=== PATIENT | female | born 1990 | race American Indian/Alaskan Native ===

== ENCOUNTER 2020-10-31 17:35 | Inpatient (IN) | payer MEDICAID ==
[2020-10-31] MEDS ORDERED: Ampicillin 2 GM in Sodium Chloride 0.9% 100 ML IV ONE (21:20)
--- NOTE | 2020-10-31 21:25 | PCM.LDHP ---
L&D History of Present Illness - General Date of Service: 10/31/20 Admit Problem/Dx: Patient Status Order with Admit Dx/Problem 10/31/20 17:45 Patient Status [ADT] Routine Admission Diagnosis/Problem Admission Diagnosis/Problem 10/31/20 21:19 Kayli is a 30-year-old 4 para 3-0-0-3 female at 40-3/7 weeks gestational age who has a reported UMA of 10/28/2020 by ultrasound done in July 2020 who is evaluated in labor and delivery for reported contractions and questionable early labor symptoms. Source of Information: Patient History Limitations: Reports: No Limitations - History of Present Illness Introduction:: Kayli is a 30-year-old 4 para 3-0-0-3 female at 40-3/7 weeks gestational age who has a reported UMA of 10/28/2020 by ultrasound done in July 2020 who is evaluated in labor and delivery for reported contractions and questionable early labor symptoms. She reports that her symptoms are that she is having "stomach pain" which she relates to contractions that she is felt with her previous labor/deliveries. She has had very little care [place] Also an ultrasound done in [place], [place] in July 2020 which placed her UMA at 10/28/2020. She has not been back for care since that time. She reports questionable visit x1 in [place], [place]. She also reports that she has had labs done in [place]. There is no evidence of them in calling to the labor and delivery at [facility] in [place], [place]. 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 Patient's had 3 vaginal deliveries all delivered in [place], [place]. Largest baby was 8 pounds 8 ounces. No reported abnormal Pap smears or STIs. Past medical history: 1. x3 Past surgical history: Unremarkable Family history: Mother secondary to kidney disease from diabetes at age 58. Father is alive but health is unknown. 3 sisters1 with diabetes mellitus, 2 that are healthy. 1 brother alive and well. All grandparents are causes unknown. Social history: Patient is single, lives in [facility] with her significant other Gonsalo. She does not use any significance alcohol, drugs or tobacco has a remote history of smoking. Review of systems: In general patient is having some abdominal/pelvic tightenings that she relates to early labor. Denies any leakage of fluid, bloo dy show. She does report good activity. Skin: Negative Lungs: No infectious symptoms or shortness of breath Cardiovascular: No chest pain or exercise intolerance Breasts: No lumps, changes in size, pain, dimpling, discharge or axillary or supraclavicular concerns. GI: Negative : Changes associated with . Musculoskeletal: Negative Neurological: Negative Physical exam: In general the patient is well-developed, well-nourished, pleasant female of stated age in no acute distress. Skin is warm dry without lesions. HEENT, neck and back within normal limits. Lungs are clear with good breath sounds in all lung jon. Cardiovascular exam shows regular and rhythm without murmurs. Abdomen is gravid with fundal height at 39 and half centimeters. Baby in vertex presentation. Vertex presentation was confirmed by abdominal exam and cervical exam. Genital shows cervix to be 4 cm dilated, 90% effaced, -2 station, mid position to anterior, soft, bulging bag of carpio. Extremities and neurological exam are grossly within normal limits. 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: - Infectious Disease History Infectious Disease History: Reports: None Social & Family History - Family History Family Medical History: No Pertinent Family History OBGYN: Reports: Endocrine/Metabolic: Reports: Diabetes, type II - Caffeine Use Caffeine Use: Reports: None H&P Review of Systems - Review of Systems: Review Of Systems: See Below L&D Exam - Exam Exam: See Below - Vital Signs Vital Signs: Last Vital Signs Temp 36.8 C 10/31/20 17:57 Pulse 84 10/31/20 17:57 Resp 16 10/31/20 17:57 BP 124/71 10/31/20 17:57 Pulse Ox 93 L 10/31/20 17:57 Weight: 91.535 kg - Patient Data Lab Results Last 24 hrs: Laboratory Results - last 24 hr 10/31/20 10/31/20 10/31/20 Range/Units 18:00 20:03 20:03 WBC 8.71 (3.98-10.04) K/mm3 RBC 4.46 (3.98-5.22) M/mm3 Hgb 9.1 L (11.2-15.7) gm/dl Hct 31.6 L (34.1-44.9) % MCV 70.9 L (79.4-94.8) fl MCH 20.4 L (25.6-32.2) pg MCHC 28.8 L (32.2-35.5) g/dl RDW Std Deviation 53.6 H (36.4-46.3) fL Plt Count 285 (182-369) K/mm3 MPV 9.7 (9.4-12.3) fl Neut % (Auto) 70.8 (34.0-71.1) % Lymph % (Auto) 18.4 L (19.3-51.7) % [place] % (Auto) 8.3 (4.7-12.5) % Eos % (Auto) 1.5 (0.7-5.8) Baso % (Auto) 0.5 (0.1-1.2) % Neut # (Auto) 6.18 H (1.56-6.13) K/mm3 Lymph # (Auto) 1.60 (1.18-3.74) K/mm3 [place] # (Auto) 0.72 H (0.24-0.36) K/mm3 Eos # (Auto) 0.13 (0.04-0.36) K/mm3 Baso # (Auto) 0.04 (0.01-0.08) K/mm3 Manual Slide Review Abnormal smear Urine Opiates Screen Negative (DNNLVA=686) Ur Buprenorphine Scrn Negative (CUTOFF=10) Ur Oxycodone Screen Negative (OSB2WD=729) Urine Methadone Screen Negative (PQFKZK=547) Ur Propoxyphene Screen Negative (HPQSVN=715) Ur Barbiturates Screen Negative (JCIYLX=019) Ur Tricyclics Screen Negative (NTPWCT=314) Ur Phencyclidine Scrn Negative (CUTOFF=25) Ur Amphetamine Screen Negative (HAFIJE=823) U Methamphetamines Scrn Negative (VVPYGH=634) U Benzodiazepines Scrn Negative (FELSPY=547) U Cocaine Metab Screen Negative (PRFFIA=860) U Marijuana (THC) Screen Negative (CUTOFF=50) HIV-1 Ab Rapid Screen Negative (NEGATIVE) Blood Type 10/31/20 Range/Units 20:03 WBC (3.98-10.04) K/mm3 RBC (3.98-5.22) M/mm3 Hgb (11.2-15.7) gm/dl Hct (34.1-44.9) % MCV (79.4-94.8) fl MCH (25.6-32.2) pg MCHC (32.2-35.5) g/dl RDW Std Deviation (36.4-46.3) fL Plt Count (182-369) K/mm3 MPV (9.4-12.3) fl Neut % (Auto) (34.0-71.1) % Lymph % (Auto) (19.3-51.7) % [place] % (Auto) (4.7-12.5) % Eos % (Auto) (0.7-5.8) Baso % (Auto) (0.1-1.2) % Neut # (Auto) (1.56-6.13) K/mm3 Lymph # (Auto) (1.18-3.74) K/mm3 [place] # (Auto) (0.24-0.36) K/mm3 Eos # (Auto) (0.04-0.36) K/mm3 Baso # (Auto) (0.01-0.08) K/mm3 Manual Slide Review Urine Opiates Screen (CVNSJV=657) Ur Buprenorphine Scrn (CUTOFF=10) Ur Oxycodone Screen (UJT5HI=428) Urine Methadone Screen (QTCKFW=904) Ur Propoxyphene Screen (IBOVWC=578) Ur Barbiturates Screen (QBVXQB=638) Ur Tricyclics Screen (IXWZGI=731) Ur Phencyclidine Scrn (CUTOFF=25) Ur Amphetamine Screen (JJTECD=648) U Methamphetamines Scrn (BIMCLB=591) U Benzodiazepines Scrn (YQTGIJ=426) U Cocaine Metab Screen (SRJHEU=621) U Marijuana (THC) Screen (CUTOFF=50) HIV-1 Ab Rapid Screen (NEGATIVE) Blood Type O POSITIVE Result Diagrams: 10/31/20 20:03 - Problem List (1) 40 weeks gestation of SNOMED Code(s): 37264811 ICD Code: Z3A.40 - 40 WEEKS GESTATION OF Status: Acute Current Visit: Yes (2) History of inadequate care SNOMED Code(s): 272047449 ICD Code: O09.30 - SUPRVSN OF PREG W INSUFFICIENT ANTENAT CARE, UNSP TRIMESTER Status: Acute Current Visit: Yes Problem List Initiated/Reviewed/Updated: Yes Orders Last 24hrs: Active Orders 24 hr Category Date Time Status Patient Status [ADT] Routine ADT 10/31/20 17:45 Active Non Stress Test [RC] PER UNIT ROUTINE Care 10/31/20 17:45 Active Vital Signs [RC] PER UNIT ROUTINE Care 10/31/20 17:45 Active GC/CHLAMYDIA BY PCR [MOLEC] Routine Lab 10/31/20 18:00 Received GROUP B STREP BY PCR [MOLEC] Routine Lab 10/31/20 19:59 Received HEP C VIRUS AB [REF] Stat Lab 10/31/20 20:03 Received HEPATITIS B SURFACE AG [CHEM] Stat Lab 10/31/20 20:03 Received PATIENT RETYPE [BBK] Routine Lab 10/31/20 20:52 Ordered RAPID PLASMA REAGIN,RPR [CHEM] Stat Lab 10/31/20 20:03 Received RUBELLA ANTIBODY IGG [CHEM] Stat Lab 10/31/20 20:03 Received TYPE AND SCREEN [BBK] Urgent Lab 10/31/20 20:03 Results Ampicillin 2 gm Med 10/31/20 21:17 Ordered Sodium Chloride 0.9% [Normal Saline] 100 ml IV ONETIME Lactated Ringers [Ringers, Lactated] 1,000 ml Med 10/31/20 21:30 Active IV ASDIRECTED OB Panel [OM.PC] Stat Oth 10/31/20 19:52 Ordered Resuscitation Status Routine Resus Stat 10/31/20 17:45 Ordered Medication Orders Lactated Ringer's (Ringers, Lactated) 1,000 mls @ 125 mls/hr IV ASDIRECTED NOEMI Assessment/Plan Comment:: 1Anais Milan is a 30-year-old 4 para 3-0-0-3 female at 40- 3/7 weeks gestational age who has a reported UMA of 10/28/2020 by ultrasound done in July 2020 who is evaluated in labor and delivery for reported contractions and questionable early labor symptoms. 2. History of rapid labors 3. Desiring epidural in labor 4. history otherwise completely unknownno records available. No labs, reported to have been previously done, are available. 5. Patient plans to bottlefeed. 6. UMA set by ultrasound reported to have been done in July 2020. Plan: 1. Complete laboratory testing drawn 2. Anticipate 3. Support bottlefeeding plan. 4. Epidural per patient desire 5. Will await labor natural progression before intervening with augmentation of labor with AROM 6. Group B strep prophylaxis with ampicillin per protocol 7. Covid testing, RPR upon admission per protocol 8. Anticipate .
[2020-10-31] MEDS: Lactated Ringers 1,000 ML IV SCH (21:35)
[2020-10-31 21:48] LABS: C. TRACHOMATIS BY PCR NOT DETECTED; N. GONORRHOEAE BY PCR NOT DETECTED
[2020-10-31] MEDS ORDERED: Sodium Chloride 0.9% 10 ML Syringe FLUSH PRN (22:45)
[2020-10-31] MEDS ORDERED: Lactated Ringers 1,000 ML IV SCH (22:45)
[2020-10-31] MEDS ORDERED: Nalbuphine 10 MG/1 ML Vial IVPUSH PRN (22:45)
[2020-10-31] MEDS ORDERED: Ondansetron 4 MG/2 ML SDV IVPUSH PRN (22:45)
[2020-10-31] MEDS ORDERED: Oxytocin/Lactated Ringers 10 UNIT/1,000 ML BAG IV SCH (22:45)
[2020-11-01] MEDS ORDERED: Bupivacaine 0.25% 10 ML SDV ONE
[2020-11-01] MEDS ORDERED: Albuterol 0.083% 2.5 MG/3 ML Neb Soln NEB PRN (01:17)
[2020-11-01] MEDS ORDERED: diphenhydrAMINE 50 MG/ML SDV IVPUSH PRN (01:17)
[2020-11-01] MEDS ORDERED: Ondansetron 4 MG/2 ML SDV IVPUSH PRN (01:17)
[2020-11-01] MEDS ORDERED: ePHEDrine 50 MG/ML SDV IVPUSH PRN (01:17)
[2020-11-01] MEDS ORDERED: fentaNYL 100 MCG/2 ML SDV EPIDUR PRN (01:17)
[2020-11-01] MEDS: Ampicillin 1 GM in Sodium Chloride 0.9% 100 ML IV SCH ×2 (01:18→05:34)
--- NOTE | 2020-11-01 01:22 | PCM.PREANE ---
Preanesthetic Assessment - Procedure Proposed Procedure: Epidural - Anesthesia/Transfusion/Family Hx Anesthesia History: Prior Anesthesia Without Reaction Family History of Anesthesia Reaction: No Transfusion History: No Prior Transfusion(s) Intubation History: Unknown - Review of Systems General: No Symptoms Pulmonary: No Symptoms (COVID + with room air sat's=93%), Shortness of Breath (one event) Cardiovascular: No Symptoms Gastrointestinal: No Symptoms (gerd) Neurological: No Symptoms Other: Reports: None - Physical Assessment NPO Status Date: 10/31/20 NPO Status Time: 20:00 Vital Signs: Last Vital Signs Temp 36.8 C 10/31/20 17:57 Pulse 84 10/31/20 17:57 Resp 16 10/31/20 17:57 BP 124/71 10/31/20 17:57 Pulse Ox 93 L 10/31/20 17:57 Height: 1.73 m Weight: 91.535 kg ASA Class: 2 Mental Status: Alert & Oriented x3 Airway Class: Mallampati = 2 Dentition: Reports: Normal Dentition, Caries Thyro-Mental Finger Breadths: 3 Mouth Opening Finger Breadths: 3 ROM/Head Extension: Full Lungs: Clear to Auscultation, Normal Respiratory Effort Cardiovascular: Regular Rate, Regular Rhythm, No Murmurs - Lab Values: Laboratory Last Values WBC 8.71 K/mm3 (3.98-10.04) 10/31/20 20:03 RBC 4.46 M/mm3 (3.98-5.22) 10/31/20 20:03 Hgb 9.1 gm/dl (11.2-15.7) L 10/31/20 20:03 Hct 31.6 % (34.1-44.9) L 10/31/20 20:03 MCV 70.9 fl (79.4-94.8) L 10/31/20 20:03 MCH 20.4 pg (25.6-32.2) L 10/31/20 20:03 MCHC 28.8 g/dl (32.2-35.5) L 10/31/20 20:03 RDW Std Deviation 53.6 fL (36.4-46.3) H 10/31/20 20:03 Plt Count 285 K/mm3 (182-369) 10/31/20 20:03 MPV 9.7 fl (9.4-12.3) 10/31/20 20:03 Neut % (Auto) 70.8 % (34.0-71.1) 10/31/20 20:03 Lymph % (Auto) 18.4 % (19.3-51.7) L 10/31/20 20:03 [place] % (Auto) 8.3 % (4.7-12.5) 10/31/20 20:03 Eos % (Auto) 1.5 (0.7-5.8) 10/31/20 20:03 Baso % (Auto) 0.5 % (0.1-1.2) 10/31/20 20:03 Neut # (Auto) 6.18 K/mm3 (1.56-6.13) H 10/31/20 20:03 Lymph # (Auto) 1.60 K/mm3 (1.18-3.74) 10/31/20 20:03 [place] # (Auto) 0.72 K/mm3 (0.24-0.36) H 10/31/20 20:03 Eos # (Auto) 0.13 K/mm3 (0.04-0.36) 10/31/20 20:03 Baso # (Auto) 0.04 K/mm3 (0.01-0.08) 10/31/20 20:03 Manual Slide Review Abnormal smear 10/31/20 20:03 Urine Opiates Screen Negative (UILYEW=829) 10/31/20 18:00 Ur Buprenorphine Scrn Negative (CUTOFF=10) 10/31/20 18:00 Ur Oxycodone Screen Negative (VVF7CL=702) 10/31/20 18:00 Urine Methadone Screen Negative (ACDSNJ=288) 10/31/20 18:00 Ur Propoxyphene Screen Negative (YTICDT=027) 10/31/20 18:00 Ur Barbiturates Screen Negative (QIGKOT=859) 10/31/20 18:00 Ur Tricyclics Screen Negative (TRADAP=865) 10/31/20 18:00 Ur Phencyclidine Scrn Negative (CUTOFF=25) 10/31/20 18:00 Ur Amphetamine Screen Negative (MJHRDL=270) 10/31/20 18:00 U Methamphetamines Scrn Negative (ZPPXRZ=544) 10/31/20 18:00 U Benzodiazepines Scrn Negative (CUIFAJ=295) 10/31/20 18:00 U Cocaine Metab Screen Negative (GBGCNY=656) 10/31/20 18:00 U Marijuana (THC) Screen Negative (CUTOFF=50) 10/31/20 18:00 HIV-1 Ab Rapid Screen Negative (NEGATIVE) 10/31/20 20:03 SARS-CoV-2 RNA (RIC) Positive (NEGATIVE) H 10/31/20 21:55 C trachomatis DNA (PCR) Not detected 10/31/20 18:00 N gonorrhoeae DNA (PCR) Not detected 10/31/20 18:00 Blood Type O POSITIVE 10/31/20 20:03 Gel Antibody Screen Negative 10/31/20 20:03 Above labs reviewed and noted and within acceptable ranges to proceed with epidural. - Allergies Allergies/Adverse Reactions: Allergies Allergy/AdvReac Type Severity Reaction Status Date / Time No Known Allergies Allergy Verified 10/31/20 19:19 - Anesthesia Plan Pre-Op Medication Ordered: None - Acknowledgements Anesthesia Type Planned: Epidural Pt an Appropriate Candidate for the Planned Anesthesia: Yes Alternatives and Risks of Anesthesia Discussed w Pt/Guardian: Yes Pt/Guardian Understands and Agrees with Anesthesia Plan: Yes PreAnesthesia Questionnaire - Past Health History Medical/Surgical History: Denies Medical/Surgical History HOME HEALTH TRAVEL PT History: Reports: - Infectious Disease History Infectious Disease History: Reports: None - SUBSTANCE USE Tobacco Use Status *Q: Former Tobacco User Tobacco Use Within Last Twelve Months: No Second Hand Smoke Exposure: No Recreational Drug Use History: No - HOME MEDS Home Medications: Home Meds Pnv No.95/Ferrous Fum/Folic AC [ Tablet] 1 each PO DAILY 10/31/20 [History] - CURRENT (IN HOUSE) MEDS Current Meds: Current Medications Albuterol (Albuterol 0.083% 2.5 Mg/3 Ml Neb Soln) 2.5 mg NEB ONETIME PRN PRN Reason: COVID + /Improve oxygenation Diphenhydramine HCl (Diphenhydramine 50 Mg/Ml Sdv) 25 mg IVPUSH Q6H PRN PRN Reason: pruritis Ephedrine Sulfate (Ephedrine 50 Mg/Ml Sdv) 5 mg IVPUSH ASDIRECTED PRN PRN Reason: Hypotension Fentanyl (Fentanyl 100 Mcg/2 Ml Sdv) 100 mcg EPIDUR Q3H PRN PRN Reason: Pain Fentanyl/Bupivacaine HCl (Bupivacaine/Fentanyl/Ns 100 Ml Bag) 100 ml EPIDUR ASDIRECTED [facility] Lactated Ringer's (Ringers, Lactated) 1,000 mls @ 125 mls/hr IV ASDIRECTED [facility] Last Admin: 10/31/20 21:35 Dose: 125 mls/hr Documented by: Ampicillin Sodium 1 gm/ Sodium (Chloride) 100 mls @ 200 mls/hr IV Q4H [facility] Last Admin: 11/01/20 01:18 Dose: 200 mls/hr Documented by: Lactated Ringer's (Ringers, Lactated) 1,000 mls @ 100 mls/hr IV ASDIRECTED [facility] Last Admin: 11/01/20 01:17 Dose: 100 mls/hr Documented by: Oxytocin/Lactated Ringer's (Pitocin In Lr 10 Units/1,000 Ml) 10 unit in 1,000 mls @ 500 mls/hr IV .CONTINUOUS [facility] Miscellaneous Medication (Phenylephrine Hcl In 0.9% Nacl 1 Mg/10 Ml Syringe) 0.1 mg IVPUSH Q10M PRN PRN Reason: Hypotension Nalbuphine HCl (Nalbuphine 10 Mg/1 Ml Vial) 10 mg IVPUSH Q2H PRN PRN Reason: Pain Ondansetron HCl (Ondansetron 4 Mg/2 Ml Sdv) 4 mg IVPUSH Q4H PRN PRN Reason: Nausea/Vomiting Ondansetron HCl (Ondansetron 4 Mg/2 Ml Sdv) 4 mg IVPUSH ONETIME PRN PRN Reason: Nausea/Vomiting Sodium Chloride (Sodium Chloride 0.9% 10 Ml Syringe) 10 ml FLUSH ASDIRECTED PRN PRN Reason: Keep Vein Open Discontinued Medications Ampicillin Sodium 2 gm/ Sodium (Chloride) 100 mls @ 200 mls/hr IV ONETIME ONE Stop: 10/31/20 21:49 Last Admin: 10/31/20 21:35 Dose: 200 mls/hr Documented by:
[2020-11-01] MEDS ORDERED: Bupivacaine/fentaNYL/NS 100 ML Bag EPIDUR SCH (01:30)
[2020-11-01] MEDS: Lactated Ringers 1,000 ML IV SCH ×2 (02:12→07:31)
[2020-11-01] MEDS ORDERED: Oxytocin/Lactated Ringers 10 UNIT/1,000 ML BAG IV SCH ×2 (03:30→11:12)
--- NOTE | 2020-11-01 11:07 | PCM.DEL ---
L & D Note - General Info Date of Service: 11/01/20 Mother's Due Date: 10/28/20 - Delivery Note Labor: Spontaneous, Augmented by ARM Delivery Outcome: Livebirth Delivery Method: Spontaneous Vaginal Delivery-Single Delivery Mode: Vacuum Extraction Presentation: Right Occiput Anterior (ODALIS) Nuchal Cord: None Prep: Povidone-Iodine (Betadine Anesthesia Type: Epidural Amniotic Fluid Description: Clear Episiotomy Type: None Laceration: 2nd Degree (midline and left perineal lacerations) Suture type: Vicryl Suture size: 3-0 Placenta: Intact, Spontaneous Cord: 3 Vessels Estimated Blood Loss: 600 Resuscitation Needed: Yes : Suctioned, Bulb Syringe, Stimulated, Warmed, [place] Used, Warmer Used Provider: Luiz Medrano Score 1 min: 8 Score 5 min: 9 Second Stage Interventions: Reports: Pushing Effectively, Pushing, Stirrups/Leg Supports Delivery Comments (Free Text/Narrative):: Stage I: Kayli Troy was admitted for active labor. On admission her cervix was dilated to 4 cm. She was GBS unknown and was started on ampicillin for GBS prophylaxis and received 3 doses of antibiotics prior to delivery. A GBS swab was collected prior to starting on antibiotics. She was given an epidural for anesthesia. She had artificial rupture membranes with return of clear fluid. She had an intrauterine pressure catheter placed for evaluation of contraction strength. She progressed to complete over the course of approximately 2.5 hours after artificial rupture of membranes. She began pushing. Stage II: Patient had been pushing for approximately 1 hour and started to have heart rate decelerations after her contractions with drops in the heart rate down into the 40s. This was sustained for approximately 1 minute and decision was made to proceed with vacuum extractor delivery for the due to intolerance of labor. The [place]wi luna type vacuum extractor was placed over the head and care was taken to ensure that there was no vaginal tissue between the cup and the head. With the start of the next contraction suction was applied to approximately 575 mmHg. Gentle downward traction was applied with the pushes. With this contraction there was 1 pop off. The vacuum extractor was then reapplied and over the course of 2 ad ditional pushes the was able to be delivered in ODALIS position. The total time of application was approximately 90 seconds with release of the vacuum between contractions. On 11/01/2020 she had a vacuum extractor assisted vaginal delivery of a live male infant at 09:51. Apgars of 8 & 9. Weight of 3740 g (8 lbs 3.9 oz). Length of 21.0 inches. There was no nuchal cord. was delivered in ODALIS position with asynclitic presentation noted after delivery of the . The cord was doubly clamped and cut by father the infant. was placed on mother's abdomen initially and then taken to the warmer for further resuscitation.. Stage III: She had a spontaneous delivery of an intact placenta in Matthew presentation. Three vessel cord. She was given pitocin and fundal massage. She had a second-degree midline and left perineal laceration that was repaired with 3-0 Vicryl. The left perineal laceration was repaired first and then the midline perineal laceration was repaired second. After repair of the midline perineal laceration there was a small amount of bleeding noted just past the vaginal introitus and a [id number] suture was placed with 3-0 Vicryl. Bleeding was controlled at this time. Mom and baby were stable to recovery. EBL of 600 mL. Bear Nye MD 11:08 AM 11/01/2020 Vacuum Extractor Progress Note - Alternative Labor Strategies Considered Alternative Labor Strategies Considered:: Reports: Yes Strategies Considered:: Reports: Contraction Intensity Adequate Indications Considered:: Reports: Yes Indications:: Reports: Suspicion of Immediate or Potential Compromise Time Out:: Reports: Yes - Patient Prepared Patient Prepared:: Reports: Yes Informed Consent:: Reports: Verbal Risks: Reports: Yes Risks Include:: Reports: Laceration, Shoulder Dystocia, Maternal Injury Anesthesia/Analgesia Adequate:: Reports: Yes - Probability of Success High Probability of Success:: Reports: Yes Weight Estimated:: Reports: AGA Patient Diabetic:: Reports: No Pelvis Adequate:: Reports: Yes Position:: ODALIS Asynclitic:: Reports: Yes Station:: +1 - Application Time Maximum Application Time & Number of Pop-Offs Predetermined:: Reports: Yes Maximum Pressure Maintained in [place] (cm Hg):: 57 Total Application Time (min): *max=20min: 3 Number of Times Cup Disengaged:: 1 Type of Vacuum Used:: Reports: Cup: Luna type Vacuum Extraction: Successful - Exit Strategy Exit strategy available:: Reports: Yes and resuscitation teams readily available:: Reports: Yes - General Info Date of Service: 11/01/20 - Patient Data Vitals - Most Recent: Last Vital Signs Temp 36.8 C 10/31/20 17:57 Pulse 84 10/31/20 17:57 Resp 16 10/31/20 17:57 BP 124/71 10/31/20 17:57 Pulse Ox 93 L 10/31/20 17:57 Weight - Most Recent: 91.535 kg I&O - Last 24 Hours: Intake & Output 10/31/20 11/01/20 11/01/20 22:59 06:59 14:59 Output Total Balance @ Lab Results Last 24 Hours: Laboratory Results - last 24 hr 10/31/20 10/31/20 10/31/20 Range/Units 18:00 18:00 20:03 WBC 8.71 (3.98-10.04) K/mm3 RBC 4.46 (3.98-5.22) M/mm3 Hgb 9.1 L (11.2-15.7) gm/dl Hct 31.6 L (34.1-44.9) % MCV 70.9 L (79.4-94.8) fl MCH 20.4 L (25.6-32.2) pg MCHC 28.8 L (32.2-35.5) g/dl RDW Std Deviation 53.6 H (36.4-46.3) fL Plt Count 285 (182-369) K/mm3 MPV 9.7 (9.4-12.3) fl Neut % (Auto) 70.8 (34.0-71.1) % Lymph % (Auto) 18.4 L (19.3-51.7) % [place] % (Auto) 8.3 (4.7-12.5) % Eos % (Auto) 1.5 (0.7-5.8) Baso % (Auto) 0.5 (0.1-1.2) % Neut # (Auto) 6.18 H (1.56-6.13) K/mm3 Lymph # (Auto) 1.60 (1.18-3.74) K/mm3 [place] # (Auto) 0.72 H (0.24-0.36) K/mm3 Eos # (Auto) 0.13 (0.04-0.36) K/mm3 Baso # (Auto) 0.04 (0.01-0.08) K/mm3 Manual Slide Review Abnormal smear Urine Opiates Screen Negative (OARTLP=074) Ur Buprenorphine Scrn Negative (CUTOFF=10) Ur Oxycodone Screen Negative (WWY4MJ=706) Urine Methadone Screen Negative (AZJWAX=527) Ur Propoxyphene Screen Negative (HLYVBD=928) Ur Barbiturates Screen Negative (YHDSFH=006) Ur Tricyclics Screen Negative (MUXJRF=781) Ur Phencyclidine Scrn Negative (CUTOFF=25) Ur Amphetamine Screen Negative (VSPXMS=587) U Methamphetamines Scrn Negative (LWYLQT=186) U Benzodiazepines Scrn Negative (OQUKAO=668) U Cocaine Metab Screen Negative (FRPTTD=466) U Marijuana (THC) Screen Negative (CUTOFF=50) HIV-1 Ab Rapid Screen (NEGATIVE) SARS-CoV-2 RNA (RIC) (NEGATIVE) C trachomatis DNA (PCR) Not detected N gonorrhoeae DNA (PCR) Not detected Blood Type Gel Antibody Screen 10/31/20 10/31/20 10/31/20 Range/Units 20:03 20:03 21:55 WBC (3.98-10.04) K/mm3 RBC (3.98-5.22) M/mm3 Hgb (11.2-15.7) gm/dl Hct (34.1-44.9) % MCV (79.4-94.8) fl MCH (25.6-32.2) pg MCHC (32.2-35.5) g/dl RDW Std Deviation (36.4-46.3) fL Plt Count (182-369) K/mm3 MPV (9.4-12.3) fl Neut % (Auto) (34.0-71.1) % Lymph % (Auto) (19.3-51.7) % [place] % (Auto) (4.7-12.5) % Eos % (Auto) (0.7-5.8) Baso % (Auto) (0.1-1.2) % Neut # (Auto) (1.56-6.13) K/mm3 Lymph # (Auto) (1.18-3.74) K/mm3 [place] # (Auto) (0.24-0.36) K/mm3 Eos # (Auto) (0.04-0.36) K/mm3 Baso # (Auto) (0.01-0.08) K/mm3 Manual Slide Review Urine Opiates Screen (WLPSHK=877) Ur Buprenorphine Scrn (CUTOFF=10) Ur Oxycodone Screen (VZS7SA=509) Urine Methadone Screen (QZMQZV=939) Ur Propoxyphene Screen (YDGUSM=279) Ur Barbiturates Screen (PQRTAQ=340) Ur Tricyclics Screen (NEGMDX=815) Ur Phencyclidine Scrn (CUTOFF=25) Ur Amphetamine Screen (BSWDXS=977) U Methamphetamines Scrn (RTCPYC=881) U Benzodiazepines Scrn (BXQRVH=585) U Cocaine Metab Screen (PPXXKT=505) U Marijuana (THC) Screen (CUTOFF=50) HIV-1 Ab Rapid Screen Negative (NEGATIVE) SARS-CoV-2 RNA (RIC) Positive H (NEGATIVE) C trachomatis DNA (PCR) N gonorrhoeae DNA (PCR) Blood Type O POSITIVE Gel Antibody Screen Negative Med Orders - Current: Current Medications Albuterol (Albuterol 0.083% 2.5 Mg/3 Ml Neb Soln) 2.5 mg NEB ONETIME PRN PRN Reason: COVID + /Improve oxygenation Diphenhydramine HCl (Diphenhydramine 50 Mg/Ml Sdv) 25 mg IVPUSH Q6H PRN PRN Reason: pruritis Ephedrine Sulfate (Ephedrine 50 Mg/Ml Sdv) 5 mg IVPUSH ASDIRECTED PRN PRN Reason: Hypotension Fentanyl (Fentanyl 100 Mcg/2 Ml Sdv) 100 mcg EPIDUR Q3H PRN PRN Reason: Pain Last Admin: 11/01/20 01:37 Dose: 100 mcg Documented by: Fentanyl/Bupivacaine HCl (Bupivacaine/Fentanyl/Ns 100 Ml Bag) 100 ml EPIDUR ASDIRECTED [facility] Last Admin: 11/01/20 01:37 Dose: 100 ml Documented by: Lactated Ringer's (Ringers, Lactated) 1,000 mls @ 125 mls/hr IV ASDIRECTED [facility] Last Admin: 11/01/20 07:31 Dose: 125 mls/hr Documented by: Ampicillin Sodium 1 gm/ Sodium (Chloride) 100 mls @ 200 mls/hr IV Q4H [facility] Last Admin: 11/01/20 05:34 Dose: 200 mls/hr Documented by: Lactated Ringer's (Ringers, Lactated) 1,000 mls @ 100 mls/hr IV ASDIRECTED [facility] Last Admin: 11/01/20 01:17 Dose: 100 mls/hr Documented by: Oxytocin/Lactated Ringer's (Pitocin In Lr 10 Units/1,000 Ml) 10 unit in 1,000 mls @ 500 mls/hr IV .CONTINUOUS NOEMI Oxytocin/Lactated Ringer's (Pitocin In Lr 10 Units/1,000 Ml) 10 unit in 1,000 mls @ 12 mls/hr IV TITRATE NOEMI; Protocol Last Titration: 11/01/20 08:51 Dose: 8 munits/min, 48 mls/hr Documented by: Miscellaneous Medication (Phenylephrine Hcl In 0.9% Nacl 1 Mg/10 Ml Syringe) 0.1 mg IVPUSH Q10M PRN PRN Reason: Hypotension Nalbuphine HCl (Nalbuphine 10 Mg/1 Ml Vial) 10 mg IVPUSH Q2H PRN PRN Reason: Pain Ondansetron HCl (Ondansetron 4 Mg/2 Ml Sdv) 4 mg IVPUSH Q4H PRN PRN Reason: Nausea/Vomiting Ondansetron HCl (Ondansetron 4 Mg/2 Ml Sdv) 4 mg IVPUSH ONETIME PRN PRN Reason: Nausea/Vomiting Sodium Chloride (Sodium Chloride 0.9% 10 Ml Syringe) 10 ml FLUSH ASDIRECTED PRN PRN Reason: Keep Vein Open Discontinued Medications Ampicillin Sodium 2 gm/ Sodium (Chloride) 100 mls @ 200 mls/hr IV ONETIME ONE Stop: 10/31/20 21:49 Last Admin: 10/31/20 21:35 Dose: 200 mls/hr Documented by: - Exam Urinary Catheter Total Time: 0Days 0Hours - Problem List & Annotations (1) Vaginal delivery SNOMED Code(s): 730271988 Code(s): O80 - ENCOUNTER FOR FULL-TERM UNCOMPLICATED DELIVERY Status: Acute Current Visit: Yes (2) Vacuum extractor delivery, delivered SNOMED Code(s): 531575827 Code(s): O66.5 - ATTEMPTED APPLICATION OF VACUUM EXTRACTOR AND FORCEPS Status: Acute Current Visit: Yes (3) Second degree perineal laceration during delivery SNOMED Code(s): 4972553 Code(s): O70.1 - SECOND DEGREE PERINEAL LACERATION DURING DELIVERY Status: Acute Current Visit: Yes (4) 40 weeks gestation of SNOMED Code(s): 23015201 Code(s): Z3A.40 - 40 WEEKS GESTATION OF Status: Acute Current Visit: Yes (5) History of inadequate care SNOMED Code(s): 196567725 Code(s): O09.30 - SUPRVSN OF PREG W INSUFFICIENT ANTENAT CARE, UNSP TRIMESTER Status: Acute Current Visit: Yes - Problem List Review Problem List Initiated/Reviewed/Updated: Yes - My Orders Last 24 Hours: My Active Orders 11/01/20 10:27 Patient Status Manage Transfer [TRANSFER] Routine - Plan Plan:: Kayli Troy is a 30-year-old G4 now P4-0-0-4 female status post vacuum extractor delivery, PPD #0, vacuum extractor delivery for intolerance of labor, asymptomatic Covid positive status, GBS status unknown and received and history of insufficient care Admit to inpatient following vacuum extractor assisted vaginal delivery Continue Pitocin per unit protocol following delivery of placenta and lactated Ringer's until tolerating regular diet Regular diet Vitals per unit routine Ibuprofen and Tylenol for pain control Assist with bottlefeeding as needed Continue to monitor [facility] facility services consult for limited care status during the Anticipate discharge home on day #1 or #2 depending on status Bear Nye MD 11:08 AM 11/01/2020
[2020-11-01] MEDS ORDERED: Witch Hazel Medicated Pads 40/Jar TOP PRN (11:12)
[2020-11-01] MEDS ORDERED: Magnesium Hydroxide 400 MG/5 ML Susp 30 ML Cup PO PRN (11:12)
[2020-11-01] MEDS ORDERED: Benzocaine/Menthol 20%-0.5% Spray 56 GM Canister TOP PRN (11:12)
[2020-11-01] MEDS ORDERED: Docusate Sodium 100 MG Cap PO PRN (11:12)
[2020-11-01] MEDS ORDERED: Hydrocortisone Acetate 25 MG Supp RECTAL PRN (11:12)
[2020-11-01] MEDS: Ibuprofen 600 MG Tab PO PRN ×2 (11:39→20:26)
[2020-11-01] MEDS: Acetaminophen 325 MG Tab PO PRN (15:45)
[2020-11-02] MEDS: Acetaminophen 325 MG Tab PO PRN (04:28)
--- NOTE | 2020-11-02 07:07 | PCM48HPAN ---
Post Anesthesia Note - EVALUATION WITHIN 48HRS OF ANESTHETIC Vital Signs in Normal Range: Yes Patient Participated in Evaluation: Yes Respiratory Function Stable: Yes Airway Patent: Yes Cardiovascular Function Stable: Yes Hydration Status Stable: Yes Pain Control Satisfactory: Yes Nausea and Vomiting Control Satisfactory: Yes Mental Status Recovered: Yes Vital Signs: Last Vital Signs Temp 36.9 C 11/02/20 04:23 Pulse 80 11/02/20 04:23 Resp 15 11/02/20 04:23 BP 105/67 11/02/20 04:23 Pulse Ox 94 L 11/02/20 04:23
[2020-11-02] MEDS: Ibuprofen 600 MG Tab PO PRN (08:19)
--- NOTE | 2020-11-02 08:59 | PCM.SN.2 ---
- Free Text/Narrative Note: Post Progress Note PPD #1 Subjective: Doing well overall. Ambulating without difficulty. Reports that she does have some soreness in her pelvis with ambulation but that it is overall tolerable. Lochia minimal and decreasing since yesterday. Voiding without difficulty. Tolerating regular diet without nausea or vomiting. Pain controlled with oral medications. Bottlefeeding with minimal difficulty. Denies producing any breastmilk at this time. Objective: Vitals: Vital Signs - 24 hr 11/01/20 11/01/20 11/01/20 15:31 15:48 19:59 Temperature 36.8 C 36.9 C Pulse, 94 89 Peripheral Respiratory 16 18 Rate Blood Pressure 115/61 127/76 O2 Sat by Pulse 94 L 94 L Oximetry 11/02/20 04:23 Temperature 36.9 C Pulse, 80 Peripheral Respiratory 15 Rate Blood Pressure 105/67 O2 Sat by Pulse 94 L Oximetry Physical Exam General: Alert and oriented, no acute distress Lungs: Clear to auscultation bilaterally Heart: Regular rate and rhythm Abdomen: Soft, minimal appropriate tenderness, non-distended, fundus midline, nontender, and at the umbilicus Extremities: No edema in bilateral lower extremities, no calf tenderness bilaterally Laboratory Tests 10/31/20 10/31/20 10/31/20 Range/Units 18:00 18:00 19:59 WBC (3.98-10.04) K/mm3 RBC (3.98-5.22) M/mm3 Hgb (11.2-15.7) gm/dl Hct (34.1-44.9) % MCV (79.4-94.8) fl MCH (25.6-32.2) pg MCHC (32.2-35.5) g/dl RDW Std Deviation (36.4-46.3) fL Plt Count (182-369) K/mm3 MPV (9.4-12.3) fl Neut % (Auto) (34.0-71.1) % Lymph % (Auto) (19.3-51.7) % [place] % (Auto) (4.7-12.5) % Eos % (Auto) (0.7-5.8) Baso % (Auto) (0.1-1.2) % Neut # (Auto) (1.56-6.13) K/mm3 Lymph # (Auto) (1.18-3.74) K/mm3 [place] # (Auto) (0.24-0.36) K/mm3 Eos # (Auto) (0.04-0.36) K/mm3 Baso # (Auto) (0.01-0.08) K/mm3 Manual Slide Review Urine Opiates Screen Negative (GSWRKA=228) Ur Buprenorphine Scrn Negative (CUTOFF=10) Ur Oxycodone Screen Negative (CRP5CT=134) Urine Methadone Screen Negative (IURZBD=363) Ur Propoxyphene Screen Negative (GPPKXN=550) Ur Barbiturates Screen Negative (TCPQZJ=847) Ur Tricyclics Screen Negative (XXEVFD=573) Ur Phencyclidine Scrn Negative (CUTOFF=25) Ur Amphetamine Screen Negative (YALZNX=819) U Methamphetamines Scrn Negative (EYNWQB=862) U Benzodiazepines Scrn Negative (MCPTRW=724) U Cocaine Metab Screen Negative (WUOAXO=579) U Marijuana (THC) Screen Negative (CUTOFF=50) RPR (NONREACTIVE) HIV-1 Ab Rapid Screen (NEGATIVE) SARS-CoV-2 RNA (RIC) (NEGATIVE) Group B Strep (PCR) Negative (NEGATIVE) C trachomatis DNA (PCR) Not detected N gonorrhoeae DNA (PCR) Not detected Blood Type Gel Antibody Screen 10/31/20 10/31/20 10/31/20 Range/Units 20:03 20:03 20:03 WBC 8.71 (3.98-10.04) K/mm3 RBC 4.46 (3.98-5.22) M/mm3 Hgb 9.1 L (11.2-15.7) gm/dl Hct 31.6 L (34.1-44.9) % MCV 70.9 L (79.4-94.8) fl MCH 20.4 L (25.6-32.2) pg MCHC 28.8 L (32.2-35.5) g/dl RDW Std Deviation 53.6 H (36.4-46.3) fL Plt Count 285 (182-369) K/mm3 MPV 9.7 (9.4-12.3) fl Neut % (Auto) 70.8 (34.0-71.1) % Lymph % (Auto) 18.4 L (19.3-51.7) % [place] % (Auto) 8.3 (4.7-12.5) % Eos % (Auto) 1.5 (0.7-5.8) Baso % (Auto) 0.5 (0.1-1.2) % Neut # (Auto) 6.18 H (1.56-6.13) K/mm3 Lymph # (Auto) 1.60 (1.18-3.74) K/mm3 [place] # (Auto) 0.72 H (0.24-0.36) K/mm3 Eos # (Auto) 0.13 (0.04-0.36) K/mm3 Baso # (Auto) 0.04 (0.01-0.08) K/mm3 Manual Slide Review Abnormal smear Urine Opiates Screen (NUVSLE=152) Ur Buprenorphine Scrn (CUTOFF=10) Ur Oxycodone Screen (AIN5EJ=970) Urine Methadone Screen (YKPJBM=964) Ur Propoxyphene Screen (UXNATZ=218) Ur Barbiturates Screen (LMSHUC=305) Ur Tricyclics Screen (DCFDCJ=734) Ur Phencyclidine Scrn (CUTOFF=25) Ur Amphetamine Screen (ZQJZOT=112) U Methamphetamines Scrn (UFLLDF=393) U Benzodiazepines Scrn (COCYIR=696) U Cocaine Metab Screen (ZCASZD=542) U Marijuana (THC) Screen (CUTOFF=50) RPR Non-reactive (NONREACTIVE) HIV-1 Ab Rapid Screen Negative (NEGATIVE) SARS-CoV-2 RNA (RIC) (NEGATIVE) Group B Strep (PCR) (NEGATIVE) C trachomatis DNA (PCR) N gonorrhoeae DNA (PCR) Blood Type Gel Antibody Screen 10/31/20 10/31/20 Range/Units 20:03 21:55 WBC (3.98-10.04) K/mm3 RBC (3.98-5.22) M/mm3 Hgb (11.2-15.7) gm/dl Hct (34.1-44.9) % MCV (79.4-94.8) fl MCH (25.6-32.2) pg MCHC (32.2-35.5) g/dl RDW Std Deviation (36.4-46.3) fL Plt Count (182-369) K/mm3 MPV (9.4-12.3) fl Neut % (Auto) (34.0-71.1) % Lymph % (Auto) (19.3-51.7) % [place] % (Auto) (4.7-12.5) % Eos % (Auto) (0.7-5.8) Baso % (Auto) (0.1-1.2) % Neut # (Auto) (1.56-6.13) K/mm3 Lymph # (Auto) (1.18-3.74) K/mm3 [place] # (Auto) (0.24-0.36) K/mm3 Eos # (Auto) (0.04-0.36) K/mm3 Baso # (Auto) (0.01-0.08) K/mm3 Manual Slide Review Urine Opiates Screen (WOKAXO=499) Ur Buprenorphine Scrn (CUTOFF=10) Ur Oxycodone Screen (PFJ7PE=085) Urine Methadone Screen (VEXCLQ=775) Ur Propoxyphene Screen (YBIJPT=970) Ur Barbiturates Screen (BRVAPI=608) Ur Tricyclics Screen (HKALBP=710) Ur Phencyclidine Scrn (CUTOFF=25) Ur Amphetamine Screen (YCGNPP=550) U Methamphetamines Scrn (CYLURI=346) U Benzodiazepines Scrn (ZFARDQ=826) U Cocaine Metab Screen (GWZKEW=482) U Marijuana (THC) Screen (CUTOFF=50) RPR (NONREACTIVE) HIV-1 Ab Rapid Screen (NEGATIVE) SARS-CoV-2 RNA (RIC) Positive H (NEGATIVE) Group B Strep (PCR) (NEGATIVE) C trachomatis DNA (PCR) N gonorrhoeae DNA (PCR) Blood Type O POSITIVE Gel Antibody Screen Negative ASSESSMENT: 30-year-old female -0-0-4 s/p vacuum extractor assisted vaginal delivery PPD #1, complicated by asymptomatic COVID-19 infection found on admission, limited care with 1 or 2 visits with outside providers, labs obtained on admission and was started on ampicillin for GBS prophylaxis and received 3 doses prior to delivery, GBS swab came back negative PLAN: * Doing well * Bottlefeeding with minimal difficulty. Assist as needed * Lochia minimal. Continue to monitor for appropriate lochia. * Continue routine care * Patient had consult with social work done on 11/01 without any significant concerns from their note * We received some of the results of her labs that were overall normal. She had O+ blood type with negative antibody screen. Her RPR and HIV test were both negative. Her GBS swab came back as negative. Gonorrhea and Chlamydia swab was negative. We will follow up on all the results once they are available. * Anticipate discharge home today Bear Nye MD 8:57 AM 11/02/2020
[2020-11-02] MEDS ORDERED: Prenatal Multivitamin with Calcium/Folic Acid/Iron Tab PO SCH (09:00)
--- NOTE | 2020-11-02 09:06 | PCM.DCSUM1 ---
Discharge Summary - Hospital Course Free Text/Narrative:: - General Info Date of Service: 11/01/20 Mother's Due Date: 10/28/20 - Delivery Note Labor: Spontaneous, Augmented by ARM Delivery Outcome: Livebirth Delivery Method: Spontaneous Vaginal Delivery-Single Delivery Mode: Vacuum Extraction Presentation: Right Occiput Anterior (ODALIS) Nuchal Cord: None Prep: Povidone-Iodine (Betadine Anesthesia Type: Epidural Amniotic Fluid Description: Clear Episiotomy Type: None Laceration: 2nd Degree (midline and left perineal lacerations) Suture type: Vicryl Suture size: 3-0 Placenta: Intact, Spontaneous Cord: 3 Vessels Estimated Blood Loss: 600 Resuscitation Needed: Yes Galva: Suctioned, Bulb Syringe, Stimulated, Warmed, [place] Used, Warmer Used Provider: Luiz Medrano Score 1 min: 8 Score 5 min: 9 Second Stage Interventions: Reports: Pushing Effectively, Pushing, Stirrups/Leg Supports Delivery Comments (Free Text/Narrative):: Stage I: Kayli Troy was admitted for active labor. On admission her cervix was dilated to 4 cm. She was GBS unknown and was started on ampicillin for GBS prophylaxis and received 3 doses of antibiotics prior to delivery. A GBS swab was collected prior to starting on antibiotics. She was given an epidural for anesthesia. She had artificial rupture membranes with return of clear fluid. She had an intrauterine pressure catheter placed for evaluation of contraction strength. She progressed to complete over the course of approximately 2.5 hours after artificial rupture of membranes. She began pushing. Stage II: Patient had been pushing for approximately 1 hour and started to have heart rate decelerations after her contractions with drops in the heart rate down into the 40s. This was sustained for approximately 1 minute and decision was made to proceed with vacuum extractor delivery for the infant due to intolerance of labor. The Kiwi torrez type vacuum extractor was placed over the head and care was taken to ensure that there was no vaginal tissue between the cup and the head. With the start of the next contraction suction was applied to approximately 575 mmHg. Gentle downward traction was applied with the pushes. With this contraction there was 1 pop off. The vacuum extractor was then reapplied and over the course of 2 additional pushes the infant was able to be delivered in ODALIS position. The total time of application was approximately 90 seconds with release of the vacuum between contractions. On 11/01/2020 she had a vacuum extractor assisted vaginal delivery of a live male at 09:51. Apgars of 8 & 9. Weight of 3740 g (8 lbs 3.9 oz). Length of 21.0 inches. There was no nuchal cord. was delivered in ODALIS position with asynclitic presentation noted after delivery of the infant. The cord was doubly clamped and cut by father the infant. Infant was placed on mother's abdomen initially and then taken to the warmer for further resuscitation.. Stage III: She had a spontaneous delivery of an intact placenta in Matthew presentation. Three vessel cord. She was given pitocin and fundal massage. She had a second-degree midline and left perineal laceration that was repaired with 3-0 Vicryl. The left perineal laceration was repaired first and then the midline perineal laceration was repaired second. After repair of the midline perineal laceration there was a small amount of bleeding noted just past the vaginal introitus and a [id number]-fo-[id number] suture was placed with 3-0 Vicryl. Bleeding was controlled at this time. Mom and baby were stable to recovery. EBL of 600 mL. Diagnosis: Stroke: No - Discharge Data Discharge Date: 11/02/20 Discharge Disposition: Home, Self-Care 01 Condition: Good - Referral to Home Health Primary Care Physician: PCP Unobtainable - Discharge Diagnosis/Problem(s) (1) Vaginal delivery SNOMED Code(s): 001290656 ICD Code: O80 - ENCOUNTER FOR FULL-TERM UNCOMPLICATED DELIVERY Status: Acute Current Visit: Yes (2) Vacuum extractor delivery, delivered SNOMED Code(s): 486948907 ICD Code: O66.5 - ATTEMPTED APPLICATION OF VACUUM EXTRACTOR AND FORCEPS Status: Acute Current Visit: Yes (3) Second degree perineal laceration during delivery SNOMED Code(s): 7232663 ICD Code: O70.1 - SECOND DEGREE PERINEAL LACERATION DURING DELIVERY Status: Acute Current Visit: Yes (4) 40 weeks gestation of SNOMED Code(s): 03698846 ICD Code: Z3A.40 - 40 WEEKS GESTATION OF Status: Acute Current Visit: Yes (5) History of inadequate care SNOMED Code(s): 314152953 ICD Code: O09.30 - SUPRVSN OF PREG W INSUFFICIENT ANTENAT CARE, UNSP TRIMESTER Status: Acute Current Visit: Yes - Patient Summary/Data Operative Procedure(s) Performed: Vacuum extractor vaginal delivery Complications: None Consults: Consultations 11/01/20 11:12 Consult to Case Management/Sheet Roller Operator [CONS] Routine Hospital Course: Kayli Troy was admitted for active labor with regular contractions. On admission her cervix was dilated to 4 cm. She was GBS unknown due to limited care and was started on ampicillin for GBS prophylaxis. She received a total of 3 doses prior to delivery. COVID-19 swab on admission came back positive. Patient was asymptomatic and did not have any significant hypoxemia. panel was collected and majority of the results were available prior to discharge and were all within normal limits. She was given pitocin for augmentation. She was given an epidural for anesthesia. She had artificial rupture of membranes with clear fluid. She progressed to complete and began pushing. Patient had been pushing for approximately 1 hour and started to have heart rate decelerations after her contractions with drops in the heart rate do wn into the 40s. This was sustained for approximately 1 minute and decision was made to proceed with vacuum extractor delivery for the infant due to intolerance of labor. The Kiwi torrez type vacuum extractor was placed over the head and care was taken to ensure that there was no vaginal tissue between the cup and the head. With the start of the next contraction suction was applied to approximately 575 mmHg. Gentle downward traction was applied with the pushes. With this contraction there was 1 pop off. The vacuum extractor was then reapplied and over the course of 2 additional pushes the was able to be delivered in ODALIS position. The total time of application was approximately 90 seconds with release of the vacuum between contractions. On 11/01/2020 she had a vacuum extractor assisted vaginal delivery of a live male infant at 09:51. Apgars of 8 & 9. Weight of 3740 g (8 lbs 3.9 oz). Her course was uneventful. Her pain was well controlled and she had minimal lochia. She was ambulating, tolerating a regular diet and voiding normally. She was bottlefeeding with minimal difficulty. She denies having any breast milk production prior to discharge. She was afebrile and her hematocrit was 31.6 on admission.patient had social work consult prior to discharge on the day of delivery and there were no concerns on that note. She desired to be dis charged home on the morning of PPD #1. Her blood type is O+. - Patient Instructions Diet: Regular Diet as Tolerated Activity: Apply Ice, As Tolerated Activity, Other: Nothing in the vagina for 6 weeks Driving: May Drive Today Showering/Bathing: May Shower Notify Provider of: Fever, Increased Pain, Swelling and Redness, Drainage, Nausea and/or Vomiting Other/Special Instructions: Please contact your physician's office if you have heavy vaginal bleeding enough to soak a pad in less than an hour for several hours. Monitor for any signs of an infection in the breasts with severe pain or redness of the breast. Recommend for you to wear a tight fitting sports bra or Wilmar bandage wrap around the chest and breasts to reduce breast milk production. Also recommend to avoid any stimulation of the nipples. Try to avoid expressing any milk from the breast to reduce the amount of breast milk production. - Discharge Plan *PRESCRIPTION DRUG MONITORING PROGRAM REVIEWED*: Not Applicable *COPY OF PRESCRIPTION DRUG MONITORING REPORT IN PATIENT RANI: Not Applicable Home Medications: Home Meds Pnv No.95/Ferrous Fum/Folic AC [ Tablet] 1 each PO DAILY 10/31/20 [History] Acetaminophen [Tylenol] 650 mg PO Q6H PRN tablet 11/02/20 [Rx] Benzocaine/Menthol [Dermoplast Pain Relief [place]] 1 spray TOP ASDIRECTED PRN canister 11/02/20 [Rx] Docusate Sodium [Colace] 100 mg PO BID PRN cap 11/02/20 [Rx] Hydrocortisone Acetate [Anucort-HC] 25 mg RECTAL BID PRN supp 11/02/20 [Rx] Ibuprofen [Motrin] 600 mg PO Q6H PRN tablet 11/02/20 [Rx] yamileth Ayana [Tucks] 1 pad TOP ASDIRECTED PRN pad 11/02/20 [Rx] Patient Handouts: Vacuum-Assisted Vaginal Delivery, COVID-19: How to Protect Yourself and Others - CDC, Care of a Perineal Tear, Care After Vaginal Delivery Referrals: Reggie Smalls MD [Physician] - (Follow-up in 2 to 3 weeks for routine visit or earlier as needed.) - Discharge Summary/Plan Comment DC Time >30 min.: No - Patient Data Vitals - Most Recent: Last Vital Signs Temp 36.9 C 11/02/20 04:23 Pulse 80 11/02/20 04:23 Resp 15 11/02/20 04:23 BP 105/67 11/02/20 04:23 Pulse Ox 94 L 11/02/20 04:23 Weight - Most Recent: 91.535 kg I&O - Last 24 hours: Intake & Output 11/01/20 11/02/20 11/02/20 22:59 06:59 14:59 Intake Total 240 Balance 240 Lab Results - Last 24 hrs: Laboratory Results - last 24 hr 10/31/20 10/31/20 Range/Units 19:59 20:03 RPR Non-reactive (NONREACTIVE) Group B Strep (PCR) Negative (NEGATIVE) Med Orders - Current: Current Medications Acetaminophen (Acetaminophen 325 Mg Tab) 650 mg PO Q6H PRN PRN Reason: mild pain or fever Last Admin: 11/02/20 04:28 Dose: 650 mg Documented by: Albuterol (Albuterol 0.083% 2.5 Mg/3 Ml Neb Soln) 2.5 mg NEB ONETIME PRN PRN Reason: COVID + /Improve oxygenation Benzocaine/Menthol (Benzocaine/Menthol 20%-0.5% [place] 56 Gm Canister) 0 gm TOP ASDIRECTED PRN PRN Reason: Perineal Comfort Measure Last Admin: 11/01/20 11:40 Dose: 1 applic Documented by: Docusate Sodium (Docusate Sodium 100 Mg Cap) 100 mg PO BID PRN PRN Reason: Constipation Hydrocortisone Acetate (Hydrocortisone Acetate 25 Mg Supp) 25 mg RECTAL BID PRN PRN Reason: Hemorrhoid pain Oxytocin/Lactated Ringer's (Pitocin In Lr 10 Units/1,000 Ml) 10 unit in 1,000 mls @ 100 mls/hr IV TITRATE NOEMI; Protocol Ibuprofen (Ibuprofen 600 Mg Tab) 600 mg PO Q6H PRN PRN Reason: Mild pain or fever Last Admin: 11/02/20 08:19 Dose: 600 mg Documented by: Magnesium Hydroxide (Magnesium Hydroxide 400 Mg/5 Ml Susp 30 Ml Cup) 30 ml PO BEDTIME PRN PRN Reason: Constipation Prenat Multivit/[place]/Iron/Folic Ac ( Multivitamin With Calcium/Folic Acid/Iron Tab) 1 each PO DAILY [facility] Last Admin: 11/02/20 08:18 Dose: 1 each Documented by: Yamileth Allen (Yamileth Allen Medicated Pads 40/Jar) 1 pad TOP ASDIRECTED PRN PRN Reason: Perineal Comfort Measure Last Admin: 11/01/20 11:39 Dose: 1 applic Documented by: Discontinued Medications Bupivacaine HCl (Bupivacaine 0.25% 10 Ml Sdv) 10 ml .ROUTE .STK-MED ONE Stop: 11/01/20 00:01 Diphenhydramine HCl (Diphenhydramine 50 Mg/Ml Sdv) 25 mg IVPUSH Q6H PRN PRN Reason: pruritis Ephedrine Sulfate (Ephedrine 50 Mg/Ml Sdv) 5 mg IVPUSH ASDIRECTED PRN PRN Reason: Hypotension Fentanyl (Fentanyl 100 Mcg/2 Ml Sdv) 100 mcg EPIDUR Q3H PRN PRN Reason: Pain Last Admin: 11/01/20 01:37 Dose: 100 mcg Documented by: Fentanyl/Bupivacaine HCl (Bupivacaine/Fentanyl/Ns 100 Ml Bag) 100 ml EPIDUR ASDIRECTED [facility] Last Admin: 11/01/20 01:37 Dose: 100 ml Documented by: Lactated Ringer's (Ringers, Lactated) 1,000 mls @ 125 mls/hr IV ASDIRECTED [facility] Last Admin: 11/01/20 07:31 Dose: 125 mls/hr Documented by: Ampicillin Sodium 2 gm/ Sodium (Chloride) 100 mls @ 200 mls/hr IV ONETIME ONE Stop: 10/31/20 21:49 Last Admin: 10/31/20 21:35 Dose: 200 mls/hr Documented by: Ampicillin Sodium 1 gm/ Sodium (Chloride) 100 mls @ 200 mls/hr IV Q4H [facility] Last Admin: 11/01/20 05:34 Dose: 200 mls/hr Documented by: Lactated Ringer's (Ringers, Lactated) 1,000 mls @ 100 mls/hr IV ASDIRECTED [facility] Last Admin: 11/01/20 01:17 Dose: 100 mls/hr Documented by: Oxytocin/Lactated Ringer's (Pitocin In Lr 10 Units/1,000 Ml) 10 unit in 1,000 mls @ 500 mls/hr IV .CONTINUOUS [facility] Oxytocin/Lactated Ringer's (Pitocin In Lr 10 Units/1,000 Ml) 10 unit in 1,000 mls @ 12 mls/hr IV TITRATE NOEMI; Protocol Last Titration: 11/01/20 08:51 Dose: 8 munits/min, 48 mls/hr Documented by: Miscellaneous Medication (Phenylephrine Hcl In 0.9% Nacl 1 Mg/10 Ml Syringe) 0.1 mg IVPUSH Q10M PRN PRN Reason: Hypotension Nalbuphine HCl (Nalbuphine 10 Mg/1 Ml Vial) 10 mg IVPUSH Q2H PRN PRN Reason: Pain Ondansetron HCl (Ondansetron 4 Mg/2 Ml Sdv) 4 mg IVPUSH Q4H PRN PRN Reason: Nausea/Vomiting Ondansetron HCl (Ondansetron 4 Mg/2 Ml Sdv) 4 mg IVPUSH ONETIME PRN PRN Reason: Nausea/Vomiting Sodium Chloride (Sodium Chloride 0.9% 10 Ml Syringe) 10 ml FLUSH ASDIRECTED PRN PRN Reason: Keep Vein Open
== END 2020-11-02 11:22 | disposition home or self-care (01) | DRG 805 ==
LOC: JD.OBCHECK 17:35 → JD.OB 17:35 → JD.OBCHECK 22:45 → JD.OB 23:59 → OBSVTOIN 11-01 09:51 → JD.OB 11-01 09:52
PROVIDERS: ADMIT Obstetrics & Gynecology; ATTEND Obstetrics & Gynecology
PROC: 10D07Z6 Extraction of Products of Conception, Vacuum, Via Natural or Artificial Opening (ICD-10-PCS; principal; 2020-11-01)
PROC: 0KQM0ZZ Repair Perineum Muscle, Open Approach (ICD-10-PCS; 2020-11-01)
PROC: 10907ZC Drainage of Amniotic Fluid, Therapeutic from Products of Conception, Via Natural or Artificial Opening (ICD-10-PCS; 2020-11-01)
PROC: 3E0R3BZ Introduction of Anesthetic Agent into Spinal Canal, Percutaneous Approach (ICD-10-PCS; 2020-11-01)
DX: O48.0 Post-term pregnancy (principal); U07.1 COVID-19; Z37.0 Single live birth; O98.52 Other viral diseases complicating childbirth; O70.1 Second degree perineal laceration during delivery; Z3A.40 40 weeks gestation of pregnancy; Z87.891 Personal history of nicotine dependence
CPT/HCPCS: 01967; 36415; 51702; 59025; 59409; 80306; 85025; 86592; 86762; 86803; 86850; 86900; 86901; 87340; 87491; 87591; 87653; A9270-GY; G0433; J0290; J2590; J3010; J3490; J7120; U0002

== ENCOUNTER 2024-01-16 13:27 | Inpatient (IN) | payer SELFPAY ==
[2024-01-16] MEDS ORDERED: Nalbuphine 10 MG/1 ML Vial IVPUSH PRN (13:33)
[2024-01-16] MEDS ORDERED: Ondansetron 4 MG/2 ML SDV IVPUSH PRN (13:33)
[2024-01-16] MEDS ORDERED: Sodium Chloride 0.9% 10 ML Syringe FLUSH PRN (13:33)
[2024-01-16] MEDS ORDERED: Calcium Carbonate 500 MG Tab.Chew PO PRN (13:33)
[2024-01-16] MEDS ORDERED: Lactated Ringers 1,000 ML IV SCH (13:45)
[2024-01-16] MEDS: Oxytocin/0.9 % Sodium Chloride 30 UNIT/500 ML BAG IV SCH (13:49)
[2024-01-16] MEDS: Lidocaine 1% 50 ML MDV INJECT PRN (13:50)
[2024-01-16 14:34] LABS: BASOPHILS PERCENT AUTO 0.6 % (0.0-1.0); EOSINOPHILS ABSOLUTE AUTO 0.1 K/mm3 (0.0-0.4); EOSINOPHILS PERCENT AUTO 0.9 % (0.0-6.0); HEMATOCRIT 29.1 % (37.0-47.0); HEMOGLOBIN 8.4 gm/dl (12.0-16.0); IMMATURE GRAN ABSOLUTE AUTO 0.15 K/mm3 (0.00-0.05); IMMATURE GRAN PERCENT AUTO 2.2 % (0.0-0.4); LYMPHOCYTES ABSOLUTE AUTO 1.1 K/mm3 (1.0-4.8); LYMPHOCYTES PERCENT AUTO 15.7 % (24.0-44.0); MEAN CORPUSCULAR HEMOGLOBIN 20.5 pg (28.0-32.0); MEAN CORPUSCULAR HGB CONC 28.9 g/dl (32.0-36.0); MEAN CORPUSCULAR VOLUME 71.1 fl (83.0-99.0); MEAN PLATELET VOLUME 9.9 fl (9.4-12.3); MONOCYTES ABSOLUTE AUTO 0.4 K/mm3 (0.0-0.8); MONOCYTES PERCENT AUTO 6.1 % (0.0-8.0); NEUTROPHILS ABSOLUTE AUTO 5.1 K/mm3 (1.8-7.7); NEUTROPHILS PERCENT AUTO 74.5 % (41.0-71.0); NRBC ABSOLUTE 0.11 (0.00-0.02); NRBC PERCENT 1.6 % (0.0-0.2); PLATELET COUNT,PLT 205 K/mm3 (150-400); RED BLOOD CELL COUNT 4.09 M/mm3 (4.10-5.30); WHITE BLOOD CELL COUNT,WBC 6.77 K/mm3 (3.9-11.3)
[2024-01-16 14:50] LABS: SLIDE REVIEW ABNORMAL SMEAR
[2024-01-16] MEDS ORDERED: Docusate Sodium 100 MG Cap PO PRN (15:46)
[2024-01-16] MEDS ORDERED: Hydrocortisone Acetate 25 MG Supp RECTAL PRN (15:46)
[2024-01-16] MEDS ORDERED: Acetaminophen 325 MG Tab PO PRN (15:46)
[2024-01-16] MEDS ORDERED: Magnesium Hydroxide 400 MG/5 ML Susp 30 ML Cup PO PRN (15:46)
[2024-01-16] MEDS ORDERED: Oxytocin/Lactated Ringers 30 UNIT/500 ML BAG IV SCH (15:46)
[2024-01-16] MEDS: Ibuprofen 600 MG Tab PO SCH (15:57)
[2024-01-16] MEDS: Benzocaine/Menthol 20%-0.5% Spray 78 GM Cannister TOP PRN (15:58)
[2024-01-16] MEDS: Witch Hazel Medicated Pads 40/Jar TOP PRN (15:58)
[2024-01-16 18:39] LABS: APPEARANCE,URINE CLOUDY (Clear); BILIRUBIN,URINE 3+ (Negative); COLOR,URINE RED (Yellow); GLUCOSE,URINE NEGATIVE (Negative); KETONES,URINE 3+ (Negative); LEUKOCYTE ESTERASE,URINE 3+ (Negative); NITRITE,URINE POSITIVE (Negative); OCCULT BLOOD,URINE 3+ (Negative); PH,URINE 5.5 (5.0-8.0); PROTEIN,URINE 3+ (Negative)
[2024-01-16 18:50] LABS: BARBITURATE SCREEN,URINE NEGATIVE (CUTOFF=200); BENZODIAZEPINES SCREEN,URINE NEGATIVE (CUTOFF=150); BUPRENORPHINE SCREEN,URINE NEGATIVE (CUTOFF=10); METHADONE SCREEN, URINE NEGATIVE (CUTOFF=200); METHAMPHETAMINES SCREEN, URINE PRESUMPTIVE POSITIVE (CUTOFF=500); OXYCODONE SCREEN,URINE NEGATIVE (CUT0FF=100); THC SCREEN,URINE 20 NG/ML NEGATIVE (CUTOFF=50)
[2024-01-16 18:51] LABS: BACTERIA,URINE FEW /hpf (FEW); MUCUS,URINE FEW /hpf (FEW); RBC,URINE TOO NUMEROUS TO CNT /hpf (0-5); SQUAMOUS EPITHELIAL CELLS,UR 0-5 /hpf (0-5)
[2024-01-16 18:57] LABS: AMPHETAMINES SCREEN, URINE PRESUMPTIVE POSITIVE (CUTOFF=500)
[2024-01-16] MEDS ORDERED: Sodium Chloride 0.9% 10 ML Syringe FLUSH SCH (21:00)
[2024-01-17 02:35] LABS: C. TRACHOMATIS BY PCR NOT DETECTED
[2024-01-17 02:42] LABS: N. GONORRHOEAE BY PCR NOT DETECTED
[2024-01-17] MEDS: Ibuprofen 600 MG Tab PO SCH (08:08)
[2024-01-17] MEDS: Prenatal Multivitamin with Calcium/Folic Acid/Iron Tab PO SCH (08:17)
[2024-01-17 10:35] LABS: GROUP B STREP BY PCR NEGATIVE (NEGATIVE)
[2024-01-18 15:42] LABS: HEP B SURFACE AG Negative (Negative)
[2024-01-18 16:42] LABS: HCV AB BY CIA INTERP Negative (Negative); HEPC AB BY CIA INDEX 0.06 IV
== END 2024-01-18 11:40 | disposition home or self-care (01) | DRG 807 ==
LOC: JD.OBCHECK 13:27 → JD.OB 13:28 → JD.OBCHECK 13:35 → JD.OB 13:36 → OBSVTOIN 13:42 → JD.OB 14:49
PROVIDERS: ADMIT Obstetrics & Gynecology; ATTEND Obstetrics & Gynecology
PROC: 10E0XZZ Delivery of Products of Conception, External Approach (ICD-10-PCS; principal; 2024-01-16)
PROC: 0HQ9XZZ Repair Perineum Skin, External Approach (ICD-10-PCS; 2024-01-16)
DX: O99.324 Drug use complicating childbirth (principal); Z37.0 Single live birth; O70.0 First degree perineal laceration during delivery; F15.10 Other stimulant abuse, uncomplicated; Z3A.39 39 weeks gestation of pregnancy; O77.0 Labor and delivery complicated by meconium in amniotic fluid
CPT/HCPCS: 36415; 59025; 59409; 80306; 81001; 85025; 86592; 86762; 86803; 86850; 86900; 86901; 87086; 87340; 87491; 87591; 87653; A9270-GY; J2001; J7999